=== PATIENT | female | born 1960 | race Caucasian/White ===

== ENCOUNTER 2021-08-29 21:06 | Emergency (ER) | payer OTHER ==
[~2021-08-29] VITALS: Ht 170.2 cm; Wt 49.0 kg
[~2021-08-29 21:06] MED LIST: CIPROFLOXACIN500 M1 PO; NORCO 5-325 TA1 EACH PO; PHENERGAN 25 MG25 M1 PO; PYRIDIUM200 MG PO
[2021-08-29 22:04] LABS: ABSOLUTE NEUTROPHILS 7.1 thou/uL (1.4-8.2); BASOPHILS 0.5 % (0.0-2.0); EOSINOPHILS 0.1 % (0.0-3.0); HEMATOCRIT 42.9 % (37.0-47.0); HEMOGLOBIN 14.2 gm/dL (12.0-15.0); LYMPHOCYTES 19.2 % (24.0-44.0); MCH 30.4 pg (26.0-34.0); MCV 91.9 fL (80.0-100.0); MONOCYTES 8.5 % (1.0-8.0); PLATELET COUNT 415 thou/uL (150-400); POLYS 71.7 % (36.0-66.0); RBC 4.66 mil/uL (4.20-5.00); RDW 14.1 % (10.5-14.5)
[2021-08-29 22:08] LABS: CALCIUM 10.4 mg/dL (8.5-10.1); CREATININE 0.9 mg/dL (0.6-1.0); POTASSIUM 3.5 mmol/L (3.5-5.1)
[2021-08-29 22:14] LABS: ALBUMIN 4.3 g/dL (3.4-5.0); TOTAL BILIRUBIN 0.4 mg/dL (0.2-1.0); TOTAL PROTEIN 7.6 g/dL (6.4-8.2)
[2021-08-29 22:40] LABS: URINE BILIRUBIN NEGATIVE (Negative); URINE BLOOD NEGATIVE (Negative); URINE CLARITY SL CLOUDY; URINE COLOR YELLOW; URINE GLUCOSE-RANDOM* NEGATIVE (Negative); URINE KETONES TRACE (Negative); URINE LEUKOCYTES-REFLEX NEGATIVE (Negative); URINE NITRITE-REFLEX NEGATIVE (Negative); URINE PROTEIN (DIPSTICK) NEGATIVE (Negative); URINE UROBILINOGEN 0.2 E.U./dl (0.2-1.0)
[2021-08-30] MEDS ORDERED: HYDROCODON-ACE1 EAC7 PO (00:14)
[2021-08-30 01:07] VITALS: BP 132/60
--- NOTE | 2021-08-31 07:16 | EKG ---
[facility] [place] [address] ELECTROCARDIOGRAM REPORT Name: VENTURA AGUERORADHA Cross Room #: [facility]#: [id number] Admission: 08/29/21 Attend Phys: Discharge: 08/30/21 Date of : 56 Report #: [id number] [facility] ED Test Date: 2021-08-29 Test Time: 22:01:32 Pat Name: MAYCO AGUERO Department: Room: Gender: F Refinisher: : 1960 Requested By: Nathan Rangel Order Number: [id number] MD: Jw Arceo Measurements Intervals [place] Rate: 87 P: 93 WA: 148 QRS: 80 QRSD: 85 T: 80 QT: 389 QTc: 468 Interpretive Statements Sinus rhythm VPC's Biatrial enlargement Left ventricular hypertrophy Repol abnrm suggests ischemia, diffuse leads No previous ECG available for comparison Electronically Signed On 08-31-2021 7:16:50 [facility] [employer] by Jw Arceo [email or web address] <ELECTRONICALLY SIGNED> By: Jw Arceo MD, [facility] 08/31/21 0716 00 00 Jw Arceo MD, FACC /EPI
== END 2021-08-30 01:11 | disposition home or self-care (01) ==
LOC: ER 21:06
PROVIDERS: Emergency Medicine
DX: R10.30 Lower abdominal pain, unspecified (principal); Z20.822 Contact with and (suspected) exposure to COVID-19; Z90.710 Acquired absence of both cervix and uterus; Z79.899 Other long term (current) drug therapy